=== PATIENT | female | born 1945 | race African-American/Black ===

== ENCOUNTER 2019-12-31 20:41 | Inpatient (IN) | payer MEDICAID, MEDICARE ==
[~2019-12-31] VITALS: Ht 167.6 cm; Wt 81.6 kg
--- NOTE | 2019-12-31 20:55 | NUR ---
PT WAS NOTIFIED THAT WE HAVE MALE TECH'S AND MALE KYLE/TREVOR'S TONLUZ MARINA. PT WAS TOLD THAT WE WILL TRY AND ACCOMMODATE HER REQUEST MUCH WE CAN, BUT THERE CERTAIN CIRCUMSTANCES THAT ARE BEYOND OUR CONTROL.
--- NOTE | 2019-12-31 20:55 | NUR ---
ASSUMED CARE OF PT. PT WANTS ONLY FEMALE STAFF TO TAKE CARE OF HER.
--- NOTE | 2019-12-31 20:55 | NUR ---
PT BIB [id number] WITH A C/O RLE PAIN AND EDEMA S/P "BEING PUSHED OFF A CHAIR BY A DIRECTOR PHARMACEUTICAL". PT IS AA&O X3. PT IS REQUESTING FEMALE STAFF ONLY. PT WAS TRIAGED AND TAKEN TO ER 10. PT WAS PLACED ON THE MONITOR AND POX. VSS.
--- NOTE | 2019-12-31 21:05 | NUR ---
GRAEME KLINE IS AT THE BEDSIDE STARTING AN IV AND DRAWING BLOOD. SUMMER BABYSITTER IS AT THE BEDSIDE.
--- NOTE | 2019-12-31 21:29 | NUR ---
PT IS A HARD STICK AND ONLY ALLOW 2 ATTEMPTS AT AN IV START. PT WANTS ONLY FEMALES TO ASSIST HER. US TECH ARRIVED AT 210 AND PT REFUSED DOPPLER AT THIS TIME. SHE WANTS TO HAVE A FEMALE US TECH. 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 IT WAS EXPLAINED TO THE PT THAT THERE IS ONLY A FEW FEMALES WORKING TONIGHT AND NO FEMALE DR'S OR PA'S TONIGHT. EKG WAS DONE BY ME AND FEMALE TRACK REPAIR SUPERVISOR WILL COME TO DRAW THE PT.
--- NOTE | 2019-12-31 21:29 | NUR ---
DR WILSON WAS NOTIFIED.
--- NOTE | 2019-12-31 21:38 | NUR ---
CALLED LAB. FEMALE PHELBARBARATOMIST IS COMING.
--- NOTE | 2019-12-31 21:47 | NUR ---
xray at bedside.
--- NOTE | 2019-12-31 21:55 | NUR ---
female food vendor arrived and tried twice for blood draw.
--- NOTE | 2019-12-31 22:24 | NUR ---
DR SANCHES IS AT THE BEDSIDE WITH RUMA MULTIMEDIA JOURNALIST. PT REFUSED BLOOD DRAW AGAIN.
--- NOTE | 2019-12-31 22:24 | NUR ---
pt refused blood draw.
--- NOTE | 2019-12-31 22:25 | NUR ---
FEMALE US TECH/DOPPLER IN PROGRESS AT THE BEDSIDE.
--- NOTE | 2019-12-31 22:35 | NUR ---
DR SANCHES IS AT THE BEDSIDE.
--- NOTE | 2019-12-31 22:35 | NUR ---
PT IS POSITIVE FOR RLE DVT.
--- NOTE | 2019-12-31 22:45 | NUR ---
DR. SANCHES SPEAKING WITH HOSPITALIST, MATTY MARCOS, MILK INSPECTOR
[2019-12-31 22:54] LABS: BASOPHILS % (AUTO) 0.6 % (0.0-2.0); EOSINOPHILS % (AUTO) 2.2 % (0.0-6.0); HEMATOCRIT 33 % (33-45); HEMOGLOBIN 10.8 g/dL (11.5-14.8); LYMPHOCYTES # (AUTO) 0.6 /CMM (0.8-4.8); LYMPHOCYTES % (AUTO) 13.8 % (20.0-44.0); MEAN CORPUSCULAR HGB CONC 33 g/dl (31.0-36.0); MEAN CORPUSCULAR VOLUME 90 fL (82-100); MONOCYTES # (AUTO) 0.5 /CMM (0.1-1.30); MONOCYTES % (AUTO) 12.2 % (2.0-12.0); NEUTROPHILS # (AUTO) 2.9 /CMM (1.8-8.9); NEUTROPHILS % (AUTO) 71.2 % (43.0-81.0); PLATELET COUNT (AUTO) 169 /CMM (150-450); RED BLOOD CELL COUNT(AUTO) 3.71 MIL/uL (4.0-5.2)
--- NOTE | 2019-12-31 22:59 | NUR ---
DR. SANCHES SPEAKING WITH RADIOLOGIST
[2019-12-31] MEDS ORDERED: ONDANSETRON HCL/PF 4 MG/2 ML VIAL IVP PRN (23:00)
[2019-12-31] MEDS ORDERED: MAGNESIUM HYDROXIDE 30 ML UDC PO PRN (23:00)
[2019-12-31] MEDS ORDERED: ACETAMINOPHEN 325 MG TABLET PO PRN (23:00)
[2019-12-31] MEDS ORDERED: ENOXAPARIN SODIUM 80 MG/0.8 ML DISP.SYRIN SQ ONE (23:00)
[2019-12-31] MEDS ORDERED: Z GUARD REMEDY 2 OZ OINT TP PRN (23:00)
[2019-12-31] MEDS ORDERED: diphenhydrAMINE HCL 25 MG CAPSULE PO ONE (23:00)
[2019-12-31] MEDS ORDERED: MAG HYDROX/AL HYDROX/SIMETH 30 ML UDC PO PRN (23:00)
[2019-12-31] MEDS ORDERED: ZOLPIDEM TARTRATE 5 MG TABLET PO PRN (23:00)
[2019-12-31] MEDS ORDERED: ENOXAPARIN SODIUM 30 MG/0.3 ML DISP.SYRIN ONE (23:04)
[2019-12-31] MEDS ORDERED: ENOXAPARIN SODIUM 60 MG/0.6 ML DISP.SYRIN SQ ONE (23:04)
[2019-12-31] MEDS ORDERED: diphenhydrAMINE HCL 50 MG CAPSULE ONE (23:04)
[2019-12-31 23:16] LABS: CALCIUM, SERUM 9.1 mg/dL (8.5-10.1); CARBON DIOXIDE 29 mmol/L (21-32); CHLORIDE 106 mmol/L (98-107); CREATININE 0.8 mg/dL (0.6-1.3); GLUCOSE 102 mg/dL (74-106); POTASSIUM 3.6 mmol/L (3.5-5.1); SODIUM SERUM 140 mmol/L (136-145); UREA NITROGEN, BLOOD 13 mg/dL (7-18)
[2019-12-31] MEDS ORDERED: APIX2.5T PO (23:16)
[2019-12-31] MEDS ORDERED: ENOXAPARIN SODIUM 100 MG/ML DISP.SYRIN SQ SCH ×2 (23:30)
--- NOTE | 2019-12-31 23:40 | NUR ---
RN medsurg opening notes Received Pt from ER nurse. Pt arrived at the unit with a gurney. Pt is 74 Y F with a diagnose of DVT of RLE by Karo Gardner NP. Pt is alert and orientedX3. Respiration is normal. No SOB. No S/S of distress noted. Pt came with no IV access. FARM TRACTOR OPERATOR is aware and informed. Pt will have midline insertion in am. Skin assessment is done and performed. Pt's skin is intact. Pt's belongings was checked and placed in Pt's chart. Pt's cane at the bedside. Reorient Pt to the room and the use of aminities and call light button. Pt verbalized understanding. Received admission orders from FARM TRACTOR OPERATOR. Order carried out. Safety precautions is maintained. Bed at low position, brakes locked, side rails upX2, bed alarm is on and call light is within reach. Will continue to monitor.
[2019-12-31 23:48] LABS: B-TYPE NATRIURETIC PEPTIDE 337 PG/ML (0-125)
--- NOTE | 2019-12-31 23:57 | NUR ---
RN medsurg notes Pt is seen and examine by Karo Gardner NP. PARTS PROFESSIONAL at the bedside.
[2020-01-01] VITALS: BP 135/67
--- NOTE | 2020-01-01 | NUR ---
GRAEME medsurg notes Informed Kendra Huddleston ED MANAGER regarding Pt's diet. Pt stated "I don't have have any allergy to food and no history of diabetes." ED MANAGER ordered regular diet. Order carried out. Will continue to monitor.
--- NOTE | 2020-01-01 00:06 | NUR ---
RN medsurkalen notes Informed and notified Karo Gardner NP regarding lovenox. Pt came from ER and received lovenox injection at ER at 2300. WAITER/WAITRESS ECONOMY CLASS order to starts lovenox for tomorrow. Called chemical reclamation equipment operator pharmacy and spoke to Rick to adjust lovenox schedule for tomorrow. Charge nurse is aware and informed.
--- NOTE | 2020-01-01 00:10 | NUR ---
RN medsur notes Offered Pt to insert IV. Offered multiple times. Made aware risks and benefits. Pt keep refusing. 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 Pt will have midline in am. Will continue to monitor.
--- NOTE | 2020-01-01 01:25 | NUR ---
RN medsurg closing notes Transfer continuity of care to GRAEME Gomez.
[2020-01-01 06:28] LABS: BASOPHILS % (AUTO) 0.7 % (0.0-2.0); EOSINOPHILS % (AUTO) 2.8 % (0.0-6.0); HEMATOCRIT 33 % (33-45); HEMOGLOBIN 10.7 g/dL (11.5-14.8); LYMPHOCYTES # (AUTO) 0.5 /CMM (0.8-4.8); LYMPHOCYTES % (AUTO) 16.3 % (20.0-44.0); MEAN CORPUSCULAR HGB CONC 33 g/dl (31.0-36.0); MEAN CORPUSCULAR VOLUME 89 fL (82-100); MONOCYTES # (AUTO) 0.4 /CMM (0.1-1.30); MONOCYTES % (AUTO) 13.2 % (2.0-12.0); NEUTROPHILS # (AUTO) 2.2 /CMM (1.8-8.9); PLATELET COUNT (AUTO) 169 /CMM (150-450); RED BLOOD CELL COUNT(AUTO) 3.67 MIL/uL (4.0-5.2); WHITE BLOOD COUNT (AUTO) 3.3 K/uL (4.3-11.0)
--- NOTE | 2020-01-01 06:41 | NUR ---
MS RN OPENING NOTES PATIENT IN BED SLEEPING. A/O X3 STABLE ON RA WITH BREATHING EVEN AND UNLABORED, NO SOB NOTED. NO SIGNS OF ACUTE DISTRESS. NO COMPLAINTS OF PAIN OR DISCOMFORT AT THE MOMENT. NO IV ACCESS- AT THE MOMENT MD AWARE, WAITING FOR MIDLINE INSERTION. SAFETY PRECAUTIONS IN PLACE WITH BED IN LOWEST POSITION, CALL LIGHT WITHIN REACH, BREAKS ON, SIDE RAILS UP. ALL NEED ATTENDED TO. WILL ENDORSE TO ONCOMING SHIFT ABOUT ROGER. Addendum: 01/01/20 at 0708 by TOÑO MICHEL RN RN CLOSING NOTES
[2020-01-01 07:01] LABS: CALCIUM, SERUM 8.8 mg/dL (8.5-10.1); CREATININE 0.7 mg/dL (0.6-1.3); MAGNESIUM 1.8 mg/dL (1.8-2.4); POTASSIUM 3.7 mmol/L (3.5-5.1)
--- NOTE | 2020-01-01 07:15 | NUR ---
MS RN NOTES RECEIVED PATIENT IN BED, ASLEEP. AROUSABLE TO VERBAL AND TACTILE STIMULI./ HOB ELEVATED. NO SOB. DENIES ANY C/O PAIN NOR DISCOMFORT AT THIS TIME. BED IN LOWEST POSITION ,LOCKED. BED ALARM ON. BED SIDERAILS UP X2. CALL LIGHT WITHIN REACH.
[2020-01-01 08:14] VITALS: BP 106/54
[2020-01-01] MEDS: ENOXAPARIN SODIUM 100 MG/ML DISP.SYRIN SQ SCH ×2 (11:40→22:08)
--- NOTE | 2020-01-01 11:41 | NUR ---
MS RN NOTES OBSERVED PATIENT MOOD AND BEHAVIOR CHANGED FROM POSITIVE TO NEGATIVE DURING LUNCH. PATIENT WAS CALM AND PLEASANT WHILE CONVERSING THEN PATIENT STARTED STATING, "THERE'S A BAD ENERGY. I HAVE THE SENSE."
--- NOTE | 2020-01-01 19:05 | NUR ---
RN MS OPENING NOTES RECEIVED PATIENT IN BED SLEEPING EASILY AROUSABLE, ALERT AND ORIENTED X3, RESPIRATIONS EVEN AND UNLABORED WITH EQUAL RISE AND FALL OF CHEST, DENIES ANY PAIN OR DISCOMFORT AT THIS TIME, ORIENTED TO STAFF AND CALL LIGHT AND KEPT WITHIN REACH, SAFETY PRECAUTIONS IN PLACE, LOW BED AND LOCKED, BED ALARM IN PLACE, BSC AT BEDSIDE, NO IV SITE MD AWARE, PATIENT REFUSED VITAL SIGNS. APPEARS COMFORTABLE WILL CONTINUE TO MONITOR AND ATTEND TO NEEDS.
--- NOTE | 2020-01-01 19:35 | NUR ---
MS RN NOTES PATIENT RESTING COMFORTABLY IN BED READING THE BIBLE. ALERT AND ORIENTED X3. HOB ELEVATED. NO S/S OF RESPIRATORY DISTRESS. DENIES ANY C/O PAIN NOR DISCOMFORT AT THIS TIME. NO IV ACCESS DUE TO PATIENT REFUSED DESPITE OF EDUCATION PROVIDED. AMBULATORY WITH STEADY GAIT WITH THE USE OF CANE. BED IN LOWEST POSITION ,LOCKED. BED ALARM ON. CALL LIGHT WITHIN REACH. IN NO APPARENT DISTRESS.
--- NOTE | 2020-01-01 20:00 | NUR ---
RN MS NOTES PATIENT REFUSED VS DESPITE EDUCATION RISK AND BENEFITS EXPLAINED, STATES " I DONT WANT TO". APPEARS STABLE AT THIS TIME. NO DISTRESS PRESENT.
--- NOTE | 2020-01-02 03:21 | NUR ---
RN MS NOTES PATIENT REFUSED VITAL SIGNS ATTEMPTED TO ASSIST PATIENT TO CHANGE BED AND CHUCKS REQUESTED PATIENT REFUSED STATING " I DONT NEED YOUR BAD ENERGY" PATIENT ASKED FOR A GOWN, NEW GOWN GIVEN THAN PATIENT THREW IT ON THE FLOOR STATING I NEED A NEW GOWN WITH NEW ENERGY. NEW GOWN GIVEN AGAIN AND SHE THREW IT. ATTEMPTING TO ASSIST WITH CARE AND ADL'S NOTED PATIENT VERBALLY AGGRESSIVE STATING " I WILL HIT YOU ACROSS THE HEAD". GET OUT DESPITE TRYING TO BE ATTENTIVE AND NICE TO HER.
--- NOTE | 2020-01-02 03:25 | NUR ---
RN MS NOTES ASKED PATIENT IS I COULD CHANGE SOILED ALISSON PATIENT WALKED TOWARDS ME AGRESSIVELY PATIENT YELLING THIS WHOLE ROOM HAS NEGATIVE ENERGY YELLING AT ME I DONT KNOW WHERE YOU CAME FROM WHERE YOU BORN. AT THIS TIME UNABLE TO ASSIST PATIENT WITH CLEANING PATIENT IS ATILIO ECHAVARRIA AND RN OUT OF ROOM.
--- NOTE | 2020-01-02 03:55 | NUR ---
RN MS NOTES PATIENT WAS SPEAKING WITH CHARGE NURSE WAS VERBALLY AGGRESSIVE REPEATING SAYING " I DONT NEED YOUR BAD ENERGY ALL OVER THE SHEETS AND BED, GET THE DEVIL OUT OF YOU" AND RAISED ARM AND SWUNG PULSE OXIMETER ON FINGER TO CHARGE NURSE .
--- NOTE | 2020-01-02 03:59 | NUR ---
RN MS NOTES PATIENT IN HALLWAY YELLING. " POSTING ALL THIS NEGATIVE ENERGY"
--- NOTE | 2020-01-02 04:19 | NUR ---
CHARGE NOTES: PT WALKED TO THE NURSES STATION JENNALIV AGITATED, I INTRODUCED MYSELF A CHARGE NURSE AND ASKED IF I CAN HELP HER. PT STARTED SCREAMING AND BECAME MORE AGITATED FOR NO REASON AND BECAME AGGRESSIVE TOWARD THE NURSES. SECURITY CALLED TO TRY TO CALM THE PT, REFUSED TO GO BACK TO HER ROOM. THEM PT WANT HER BED MADE BUT REFUSED TO HAVE THE NURSES GO TO HER ROOM AND STILL AGITATED.
--- NOTE | 2020-01-02 04:29 | NUR ---
RN MS NOTES PATIENT NEEDS PYSCH CONSULT.
--- NOTE | 2020-01-02 06:21 | NUR ---
RN MS NOTES PATIENT CAME OUT OF ROOM VERY AGITATED, ATTEMPTING TO LEAVE AND ATTEMPTED TO REDIRECT PATIENT BACK TO ROOM PHYSICALLY AGGRESSIVE, STRIKING AT STAFF WITH CANE. PATIENT HIT ME WELL, LEFT IN ELEVATOR SECURITY CALLED, PATIENT IS IN LOBBY AT THIS TIME, WITH SECURITY OPERATIONS OFFICER AFLOAT AWARE, CHARGE NURSE SPOKE TO SON TO HAVE HIM TALK TO PATIENT. AND AWARE PATIENT IS IN LOBBY AND WITH SECURITY.
--- NOTE | 2020-01-02 06:30 | NUR ---
RN MS NOTES RECIEVED CALL FROM MARKETING BUSINESS ANALYST PATIENT IS SITTING IN THE LOBBY OKAY TO STAY THERE FOR NOW
--- NOTE | 2020-01-02 06:30 | NUR ---
CHARGE NURSE PT INSISTED TO GO DOWN TO THE ELEVATOR UNASISTED,BECAME COMBATIVE WHEN TRIED TO STOP THE PATIENT,. SECURITY CALLED, MET PT IN THE LOBBY. MI[employer]OS[employer] DYNAMICS DEVELOPER AWARE PT IN LOBBY WITH SECURITY. SON CALLED ON THE PHONE ,MADE AWARE OF PT"S BEHAVIOR, WAS ASKED IF HE CAN COME OVER AND TALK TO THE PT. SON AGREED TO COME OVER.
--- NOTE | 2020-01-02 06:35 | NUR ---
RN MS NOTES PATIENT REFUSES CARE AND DVT PUMPS. AMBULATES.
--- NOTE | 2020-01-02 06:37 | NUR ---
RN MS NOTES BED LINENS CHANGED. CLOSING NOTES PATIENT AT THIS TIME REMAINS IN LOBBY, AGITATED AGGRESSIVE BEHAVIOR, REFUSING TO COMEBACK UPSTAIRS, APPEARS STABLE, STEADY GAIT WITH CANE, REFUSIVE OF CARE, ATTEMPTED TO CARE FOR PATIENT THROUGHOUT SHIFT AND WAS KICKED OUT BY PATIENT MULTIPLE TIMES, WITH THREATS TO HIT STAFF. CURRENTLY SITTING IN LOBBY SANDING SUPERVISOR AWARE. WILL ENDORSE OT NEXT SHIFT.
--- NOTE | 2020-01-02 07:15 | NUR ---
MS RN NOTES RECEIVED PATIENT OFF UNIT, DOWNSIR IN [facility] WITH SECURITY. PATIENT REFUSED TO RETURN TO UNIT AND STATED, "I'M LEAVING. 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
--- NOTE | 2020-01-02 07:35 | NUR ---
MS RN NOTES CALLED SON ZHAO AND INFORMED REGARDING PATIENT WANTING TO LEAVE AND IS AT THEE FRONT LOBBY WITH SECURITY. REQUESTED SON IF HE CAN COME AND SPEAK TO PATIENT. PER SON, HE IS AT WORK AND IS UNABLE TO LEAVE. SON STATED. "IT'S NOT THAT WE DON'T CARE. MY MOM HAS PSYCHIATRIC ISSUES. MY BROTHER AND I TRIED TO GET HELP BUT SHE REFUSES. MY MOM IS HOMELESS AND WE CAN'T DO ANYTHING." ZHAO SAID HE WILL TRY TO GET A HOLD OF BROTHER [facility] IF HE'S ABLE TO COME AND WILL HOSPITAL BACK TO GIVE AN UPDATE.
--- NOTE | 2020-01-02 07:48 | NUR ---
MS RN NOTE CALLED [facility] BUT TO NO AVAIL. PHONE KEEPS ON HANGING UP.
--- NOTE | 2020-01-02 07:51 | NUR ---
MS RN NOTES INFORMED DR. ALEMAN REGARDING PATIENT WANTING TO LEAVE.
--- NOTE | 2020-01-02 07:55 | NUR ---
MS RN NOTES SPOKE TO PATIENT AND REQUESTING IF CAN RETURN TO UNIT, PATIENT REFUSED. PATIENT STILL WANTS TO LEAVE BUT DOES NOT WANT TO SIGN THE AMA AND BELONGING LIST
[2020-01-02] MEDS ORDERED: APIX5TAB PO (08:14)
[2020-01-02] MEDS ORDERED: APIX5TAB4 PO (08:14)
--- NOTE | 2020-01-02 08:20 | NUR ---
MS RN NOTES SPOKE TO PATIENT AND PRESCRIPTION WAS GIVEN. INFORMED PATIENT TO WAIT FOR DISCHARGE PAPERS, PATIENT REFUSED EVERYTHING AND LEFT.
--- NOTE | 2020-01-02 08:35 | NUR ---
MS RN NOTES CALLED SON ZHAO, LEFT MESSAGE ON VOICEMAIL AND MADE AWARE THAT PATIENT HAD ALREADY LEFT AND TO CALL HOSPITAL FOR ANY QUESTIONS.
== END 2020-01-02 08:35 | disposition home or self-care (01) | DRG 197 ==
LOC: ER 20:42 → MED 23:09
PROVIDERS: ADMIT Nurse Practitioner Acute Care; ATTEND Nurse Practitioner Acute Care
DX: I82.401 Acute embolism and thrombosis of unspecified deep veins of right lower extremity (principal); G62.9 Polyneuropathy, unspecified; D64.9 Anemia, unspecified; M16.11 Unilateral primary osteoarthritis, right hip; I10 Essential (primary) hypertension; Z88.5 Allergy status to narcotic agent; Z88.8 Allergy status to other drugs, medicaments and biological substances; Z86.711 Personal history of pulmonary embolism; Z86.59 Personal history of other mental and behavioral disorders; Z90.49 Acquired absence of other specified parts of digestive tract
CPT/HCPCS: 36415; 71045-TC; 72170-TC; 73552; 73564-TC; 80048-TC; 80061-TC; 83735-TC; 83880; 84100-TC; 84484-TC; 85025-TC; 85303; 85730-TC; 93971-TC; G0378; J1650; Q0163